=== PATIENT | female | born 1990 | race African-American/Black ===

== ENCOUNTER 2023-05-09 22:35 | Emergency (ER) | payer OTHER, SELFPAY ==
[2023-05-09 22:37] VITALS: BP 144/95; PULSE 79; RESP 18; TEMP 36.9; O2SAT 100
--- NOTE | 2023-05-10 03:46 | PC.NURSE ---
No answer to be taken to room.
== END 2023-05-10 04:22 | disposition left against medical advice (07) ==
LOC: ANHED 05-10 04:03
DX: R10.9 Unspecified abdominal pain (principal)
CPT/HCPCS: 99199